=== PATIENT | female | born 1990 | race Caucasian/White ===

== ENCOUNTER 2019-04-01 07:42 | Day surgery (SDC) | payer MEDICAID, SELFPAY ==
--- NOTE | 2019-03-23 13:02 | PCM.HP.BLA ---
History and Physical Date of Admission: 04/01/19 Willa Galvan Physician ANALYTICS LEAD H&P Signed Encounter Date: 03/23/2019 Expand All Collapse All Hide copied text Mal for details Julianna Ta is a 28 year old female who presents Discussion regarding Laparoscopic Bilateral salpingectomy. Pt has two children and current Mirena IUD for menstrual dysfunction and contraception. Pt would like to proceed with permanent sterilization. Pt singed title 19 form in January 2019. Pt understands that this procedure is permanent. Pt denies CP, SOB, Dizziness. ? PAST?MEDICAL?HISTORY PAST MEDICAL HISTORY Diagnosis Date ? Asthma, exercise induced ? ? Broken clavicle ? ? Drug use ? ? Seasonal allergies ? ? PAST?SURGICAL?HISTORY PAST SURGICAL HISTORY Procedure Laterality Date ? REMOVAL OF TONSILS,<12 Y/O ? ? ? Tonsillectomy ? FAMILY?HISTORY FAMILY HISTORY Problem Relation Age of Onset ? Breast Cancer Mother ? ? x2 ? Arthritis Mother ? ? other (Fibromyalgia) Mother ? ? Asthma Father ? ? Breast Cancer Maternal Grandmother ? ? SOCIAL?HISTORY Social History Socioeconomic History Marital status: Single Spouse name: Not on file Number of children: 1 Years of education: Not on file Highest education level: Not on file Social Needs Financial resource strain: Not on file Food insecurity - worry: Not on file Food insecurity - inability: Not on file Transportation needs - medical: Not on file Transportation needs - non-medical: Not on file Occupational History Occupation: server software engineer Employer: [employer] Tobacco Use Smoking status: Never Smoker Smokeless tobacco: Never Used Substance and Sexual Activity Alcohol use: No Drug use: No Sexual activity: Yes Partners: Male control/protection: IUD Other Topics Concerns: Not on file Social History Narrative Not on file ? CURRENT?MEDICATIONS ? Current Outpatient Medications: levonorgestrel (MIRENA) 20 mcg/24 hr (5 years) IUD Inserted in office ibuprofen (MOTRIN) 600 mg tablet Take 1 tablet by mouth every 6 hours as needed. FOR PAIN. ? No current facility-administered medications for this visit. Allergies As of Date: 03/23/2019 (No Known Allergies) Fully Assessed 03/23/2019 ? ? REVIEW OF SYSTEMS Abdomen: no pain Bladder: no dysuria.. Expanded ROS: GENERAL: Negative for fever Allergies and current medication updated:Yes ? EXAM: BP 110/68 Ht 5' 6 (1.68m) Wt 216 lb (98.0kg) BMI 34.88 kg/(m^2). ? GENERAL: pleasant, female in no apparent distress HEENT: Normocephalic, atraumatic, mucus membranes moist and no lesions NECK: Supple, full range of motion, DERMATOLOGY: Normal, without lesions, non-icteric and non-hirsute CARDIAC: regular rate and rhythm CHEST: Clear to auscultation Normal inspiratory effort NEURO: alert and oriented x3,exam grossly non-focal EXTREMITIES: normal ? ASSESSMENT AND PLAN: Encounter Diagnosis ? ? ICD-10-CM ? 1. Request for sterilization Z30.2 ? ? 2. Pt has been counseled on risks/benefits and alternatives of surgery including but not limited to anesthesia, bleeding, infection, injury to pelvic structures including bowel, bladder, ureters and vessels. Pt wishes to proceed with surgery at this time. 3. Title 19 previously signed- risk of regret reviewed. LARCs reviewed. 4. Motrin given for post op pain 5. Reviewed if IUD incidentally gets removed with uterine manipulator will get referral for new one to place in office for menstrual dysfunction. 6. Consent signed ? Willa Rothman MD ? ? ?
--- NOTE | 2019-04-01 | FALS_PTH ---
PATIENT: BRADLEY BERG LOC: [facility] – [place] U#:[id number] AGE/SX: 28/F ROOM: RE04/01/[address]: Dr. Willa Rothman, MDDOB: 1990 BED: DIS: 04/01/2019 SPEC #: [id number] RECD: 04/01/19 13:06 STATUS: JASE LIZ #: [id number] LUKE: 04/01/19 00:[address]: Willa Rothman DEPT: SURGICAL PATHOLOGY RECD BY: Royce Aldana ENTERED: 04/01/19 13:06 SP TYPE: FALL TUBES OTHR DR: No Primary Care Phys Tissues: Fallopian tube Procedures: Surgery Specimen Level II HEADER OPERATION: Laparoscopic salpingectomy PRE-OP DIAGNOSIS: Sterilization request TISSUE SUBMITTED: Bilateral fallopian tubes MICROSCOPIC DIAGNOSIS Right and left fallopian tubes, bilateral salpingectomies: Complete segments of fallopian tubes with no pathologic change. AM:rg 04/02/19 MICROSCOPIC DESCRIPTION Slides are reviewed. GROSS DESCRIPTION Received is one container labeled with the patient's name and designated bilateral fallopian tubes. The specimen consists of two fallopian tubes with an average length of 6 cm and has an average diameter of 0.7 cm. Both fallopian tubes have normal fimbriated ends. No mass lesions are identified. Cottage Attendant sections are submitted in two cassettes as follows: 1 - one fallopian tube, 2 - the other fallopian tube. / AM:romero 04/01/19 TC:4 CPT: 24948 x2
[2019-04-01 08:10] VITALS: BP 120/80; PULSE 88; RESP 16; TEMP 37.7; O2SAT 98; BMI 35.2
[2019-04-01 08:12] LABS: Hematocrit 39.8 % (37-47); Hemoglobin 13.4 g/dl (12.0-15.0); Mean Corp Hgb Conc 33.7 g/gl (32-36); Mean Corpuscular Hgb 29.6 pg (27.0-32.0); Mean Corpuscular Volume 87.9 fL (81-99); Mean Platelet Vol. 9.5 fl (6.2-12.0); Platelet Count 229 K/mm3 (150-450); RBC Distribution Width CV 12.6 % (11.6-14.6); RBC Distribution Width SD 40.6 fl (35.1-43.9); Red Blood Count 4.53 M/mm3 (4.2-5.4); White Blood Count 8.8 K/mm3 (4.4-11.0)
[2019-04-01 08:13] LABS: Scan Indicated on CBC? Y/N NO
[2019-04-01 08:15] LABS: Internal QC Validated? YES +Cl - CLEAR BKGD; Pregnancy, Urine Negative Negative
[2019-04-01] MEDS: Bupivacaine Mpf 0.5% 30 ML VIAL (09:15)
--- NOTE | 2019-04-01 09:32 | PCM.OPRPT ---
Report of Operation Date of Procedure: 04/01/19 Pre-Operative Diagnosis: sterilization request Post-Operative Diagnosis: same Surgery/Procedure Performed:: Laparoscopic Bilateral salpingectomy Description of Surgical Findings:: normal tubes and ovaries bilaterally - Mirena IUD in place member of congress: student - Tony Mayer MS3 Type of Anesthesia:: General Special Medications: 0.5% Marcaine Specimen's removed: bilateral fallopian tubes Drains: none Estimated Blood Loss (mL): <5 Fluids Replaced: 1000 Description of Procedure: After informed consent was obtained patient was taken to the operating room she was placed in supine position she was given anesthesia. She was then placed in the yellow [facility] stirrups and she was prepped and draped in normal sterile fashion. Bladder was drained prior to the start of procedure approximately 50cc of clear yellow urine was expelled. At this time attention was turned to the vaginal portion where weighted speculum placed at posterior fornix vagina single-tooth tenaculum was used to gently grasp the internal the cervix. acorn manipulator placed, IUD strings visualized. Uterine manipulator was placed without difficulty. Legs then placed in parallel with the abdomen the tenaculum and the weighted speculum were removed. 2 towel clamps were placed on either side of umbilicus. After Marcaine was injected superior to umbilicus a small incision was made and a 5 mm trocar was placed under direct visualization. CO2 gas was used to insufflate the intra-abdominal cavity. Upon inspection no gross abnormalities uterus tubes and ovaries appeared to be normal. At this time then the LLQ and RLQ ports were placed again Marcaine was injected small incision was made a knife and the 5 mm trocars were placed. At this time then tubes were traced back to the fimbriated ends. Ligasure was used to coagulate and ligate along mesosalpinx bilaterally until tubes removed completely. Good hemostasis was appreciated. At this time procedure was deemed complete successful. The gas was desufflated on from the intra-abdominal cavity. The trochars were removed. Skin was closed using 4-0 Monocryl in a subcutaneous fashion. Dermabond glue was placed. Instrument lap and needle counts were correct ?2. The uterine manipulator was removed. Vaginal sweep was performed it was negative. There were no complications anticipated normal postoperative course for this patient. Grafts/Implants Used: none - Complications none - Admit VTE Documentation VTE Present on Admission: Yes VTE Mechan Device Prophylaxis: SCD's VTE Pharm Prophylaxis ordered?: No
--- NOTE | 2019-04-01 09:36 | OP.PCM_ITS ---
Report of Operation Date of Procedure: 04/01/19 Pre-Operative Diagnosis: sterilization request Post-Operative Diagnosis: same Surgery/Procedure Performed:: Laparoscopic Bilateral salpingectomy Description of Surgical Findings:: normal tubes and ovaries bilaterally - Mirena IUD in place grain packer: student - Tony Mayer MS3 Type of Anesthesia:: General Special Medications: 0.5% Marcaine Specimen's removed: bilateral fallopian tubes Drains: none Estimated Blood Loss (mL): <5 Fluids Replaced: 1000 Description of Procedure: After informed consent was obtained patient was taken to the operating room she was placed in supine position she was given anesthesia. She was then placed in the yellow [facility] stirrups and she was prepped and draped in normal sterile fashion. Bladder was drained prior to the start of procedure approximately 50cc of clear yellow urine was expelled. At this time attention was turned to the vaginal portion where weighted speculum placed at posterior fornix vagina single-tooth tenaculum was used to gently grasp the internal the cervix. acorn manipulator placed, IUD strings visualized. Uterine manipulator was placed without difficulty. Legs then placed in parallel with the abdomen the tenaculum and the weighted speculum were removed. 2 towel clamps were placed on either side of umbilicus. After Marcaine was injected superior to umbilicus a small incision was made and a 5 mm trocar was placed under direct visualization. CO2 gas was used to insufflate the intra-abdominal cavity. Upon inspection no gross abnormalities uterus tubes and ovaries appeared to be normal. At this time then the LLQ and RLQ ports were placed again Marcaine was injected small incision was made a knife and the 5 mm trocars were placed. At this time then tubes were traced back to the fimbriated ends. Ligasure was used to coagulate and ligate along mesosalpinx bilaterally until tubes removed completely. Good hemostasis was appreciated. At this time procedure was deemed complete successful. The gas was desufflated on from the intra-abdominal cavity. The trochars were removed. Skin was closed using 4-0 Monocryl in a subcutaneous fashion. Dermabond glue was placed. Instrument lap and needle counts were correct ?2. The uterine manipulator was removed. Vaginal sweep was performed it was negative. There were no complications anticipated normal postoperative course for this patient. Grafts/Implants Used: none - Complications none - Admit VTE Documentation VTE Present on Admission: Yes VTE Mechan Device Prophylaxis: SCD's VTE Pharm Prophylaxis ordered?: No
--- NOTE | 2019-04-01 09:36 | PCM.DC.TUB ---
Discharge Diet: No Restrictions, - - Increase fluid intake for 48 hours. Discharge Activity: Return to Normal Activity, May Drive - when you are no longer taking narcotic pain medications., May Shower, May Take a Tub Bath - in 7 days., - - Ambulate often the next week after surgery. May shower in (days): 1 May resume sexual activity in: 2 weeks Lifting Restrictions: 20 Additional Activity Instructions:: Nothing in the vagina for the next 14 days Call your doctor if your incision/area has: Continuous Slow Oozing, Sudden Increased Bleeding, Increased Pain/ Swelling, Increased Redness, Foul Smelling Discharge, Swelling at the incision site Call your doctor if you observe: Fever of 101 or Higher Cleanse incision/area with: Soap & Water, - - you have skin glue- do not pick off. ok to let soap and water run over incision and dab dry. Allergies/Adverse Reactions: Allergies No Known Allergies Allergy (Verified 03/24/19 14:15) Medications to take at Discharge NK 03/24/19 Orders to be completed after discharge: ,Urine Time Frame: 04/01/19, Location: Laboratory Primary Care Physician: Care Physician,No Primary [Primary Care Provider] - Test Results: Test results from this visit will be discussed in further detail at your follow-up appointment, if applicable. Please Follow Up With: Willa Rothman MD When: as scheduled
--- NOTE | 2019-04-01 09:39 | DCINST_ITS ---
Discharge Diet: No Restrictions, - - Increase fluid intake for 48 hours. Discharge Activity: Return to Normal Activity, May Drive - when you are no longer taking narcotic pain medications., May Shower, May Take a Tub Bath - in 7 days., - - Ambulate often the next week after surgery. May shower in (days): 1 May resume sexual activity in: 2 weeks Lifting Restrictions: 20 Additional Activity Instructions:: Nothing in the vagina for the next 14 days Call your doctor if your incision/area has: Continuous Slow Oozing, Sudden Increased Bleeding, Increased Pain/ Swelling, Increased Redness, Foul Smelling Discharge, Swelling at the incision site Call your doctor if you observe: Fever of 101 or Higher Cleanse incision/area with: Soap & Water, - - you have skin glue- do not pick off. ok to let soap and water run over incision and dab dry. Allergies/Adverse Reactions: Allergies No Known Allergies Allergy (Verified 03/24/19 14:15) Medications to take at Discharge NK 03/24/19 Orders to be completed after discharge: ,Urine Time Frame: 04/01/19, Location: Laboratory Primary Care Physician: Care Physician,No Primary [Primary Care Provider] - Test Results: Test results from this visit will be discussed in further detail at your follow- up appointment, if applicable. Please Follow Up With: Willa Rothman MD When: as scheduled
[2019-04-01 09:45] VITALS: BP 120/80; BP 98/71; PULSE 75; RESP 16; TEMP 36.5; O2SAT 98
[2019-04-01 09:59] VITALS: BP 102/67; BP 120/80; PULSE 74; RESP 18; TEMP 36.3; O2SAT 95
[2019-04-01 10:35] VITALS: BP 112/70; BP 120/80; PULSE 77; RESP 16; TEMP 36.6; O2SAT 97
== END 2019-04-01 10:37 | disposition home or self-care (01) ==
LOC: SDC 07:44 → AC 07:46
PROVIDERS: Referring Provider Obstetrics & Gynecology; Visit Provider Obstetrics & Gynecology
PROC: (CPT 58661; principal; 2019-04-01 08:40)
DX: Z30.2 Encounter for sterilization (principal); J45.990 Exercise induced bronchospasm; Z97.5 Presence of (intrauterine) contraceptive device
CPT/HCPCS: 58661; 81025; 85027; 88302; J7120; J2405

== ENCOUNTER 2019-05-04 21:01 | Emergency (ER) | payer MEDICAID, SELFPAY ==
[2019-05-04 21:02] VITALS: BP 122/71; PULSE 91; RESP 20; TEMP 36.8; O2SAT 96; BMI 35.2
--- NOTE | 2019-05-04 21:15 | ED.VIS.GEN ---
History of Present Illness Chief Complaint: Abd Pain Informant: Patient Onset: Today Narrative: Patient presents with sudden intermittent right lower quadrant abdominal pain 1 hour prior to arrival. States would come in bouts and sharp in nature. This morning had some nausea symptoms. Denies any urinary symptoms. No fevers. Normal stools. No previous similar symptoms in the past. History of Mirena placement along with recent bilateral salpingectomy a month ago for sterilization. No history of kidney stones. Reports symptoms currently resolved. Prior similar symptoms: No Past Medical History - Allergies and Home Meds Allergies/Adverse Reactions: Allergies No Known Allergies Allergy (Verified 03/24/19 14:15) Primary Care Physician: Care Physician,No Primary [Primary Care Provider] - Surgical History: no surgical history Smoking Status: Never smoker - Family History Paternal Family History: Reports: No pertinent history Maternal Family History: Reports: - - Breast cancer Review of Systems General: Denies: Chills, Fever, Sweats Eyes: Denies: Visual changes - bilaterally, Diplopia ENT: Denies: Rhinorrhea, Sore throat Cardiovascular: Denies: Chest pain, Palpitations Respiratory: Denies: Dyspnea, Cough, Dyspnea on exertion Gastrointestinal: Denies: Abdominal pain, Nausea, Vomiting, Diarrhea, Melena, Hematochezia Genitourinary: Denies: Dysuria, Hematuria, Frequency Musculoskeletal: Denies: Back pain, Extremity Pain Skin: Denies: Rash, Wounds Neurological: Denies: Headache, Weakness, Numbness Physical Exam Vital Signs/Narrative: Vital Signs Temp Pulse Resp BP Pulse Ox 05/04/19 21:02 98.3 F 91 20 H 122/71 H 96 Inital Vital Signs reviewed: Yes General: Well nourished, Well developed, No Acute Distress Head: Normocephalic, Atraumatic Eyes: Perrl, EOMI ENT: Moist mucous membranes, No rhinorrhea Neck: Supple, Nontender Cardiovascular: Regular rate, Regular rhythm, No murmurs Respiratory: No distress, CTA bilaterally, Chest nontender Abdomen: Soft, Nontender, Nondistended, Normal bowel sounds, - - Negative McBurney's tenderness.. Negative for: Headley's sign Back: Nontender, Normal Inspection Extremities: Nontender, No edema Skin: Normal color, No rash Neurological: Alert, Oriented x3, Cranial nerves II-XII grossly intact, Normal Strength, Normal Sensation Psychological: Normal affect, Normal Mood Diagnostic/Tx/Re-eval Abnormal Lab Results 05/04/19 05/04/19 21:22 21:22 Urine Color Yellow Urine Clarity Sl. Cloudy Urine pH 6.0 Ur Specific [place] 1.020 Urine Protein Negative Urine Glucose (UA) Normal Urine Ketones Negative Urine Occult Blood 25 H Urine Nitrite Negative Urine Bilirubin Negative Urine Urobilinogen Normal Ur Leukocyte Esterase Negative Urine RBC 0-5 SEEN Urine WBC 0 SEEN Ur Squamous Epith Cells 0-5 SEEN Urine Bacteria 0 SEEN Urine Mucus 0 SEEN Urine Test Negative - Medical Decision Making Patient currently asymptomatic. Her history concern for possible renal stones with colic symptoms. I did check a urine. Did note hematuria. No infection. hCG negative. Reevaluation still remains asymptomatic. Discussed with patient colic symptoms, discussed to return to take Motrin, however symptoms uncontrolled or worsens to return for reevaluation. No clinical signs of appendicitis with her right lower quadrant pain, however signs and symptoms also discussed to be reevaluated. She is given follow-up with urology for hematuria and her colic symptoms. All questions were answered. ED Disposition - Plan for ED Patient: Disposition: Home or Assisted Living Diagnosis: Hematuria Instructions: Hematuria Referrals: Care Physician,No Primary [Primary Care Provider] - Tabatha Santiago MD [STAFF PHYSICIAN] - 5-7 Days
[2019-05-04 21:32] LABS: Bacteria 0 SEEN /hpf (None Seen); Mucous, Urine 0 SEEN /hpf (<or=2+); White Blood Cells 0 SEEN /hpf (0-5)
[2019-05-04 21:36] LABS: Color, Urine Yellow (Yellow); Glucose, Dipstick Normal (Normal); Ketone-Dipstick Negative (Negative); Leukocyte Esterase-Dipstick Negative /ul (Negative); Nitrite-Dipstick Negative (Negative); Occult Blood-Urine 25 /ul (Negative); Protein-Dipstick Negative (Negative); Urine Bilirubin Dipstick Negative (Negative); Urine Clarity Sl. Cloudy (Clear); Urine Urobilinogen Normal (Normal)
[2019-05-04 21:42] LABS: Internal QC Validated? YES +Cl - CLEAR BKGD; Red Blood Cells-Urine 0-5 SEEN /hpf (0-5); Squamous Epithelial Cells - UA 0-5 SEEN /hpf (5-10)
[2019-05-04 21:43] LABS: Pregnancy, Urine Negative Negative
[2019-05-04 22:17] VITALS: BP 113/72; PULSE 79; RESP 16; O2SAT 94
== END 2019-05-04 22:17 | disposition home or self-care (01) ==
PROVIDERS: Emergency Provider Emergency Medicine
DX: R31.9 Hematuria, unspecified (principal)
CPT/HCPCS: 81001; 81025; 99282

== ENCOUNTER → 2020-01-31 | Outpatient (CLI) | payer MEDICAID, SELFPAY ==
[2020-01-31 20:01] LABS: M R Staph aureus DNA By PCR Negative (Negative); Staph aureus DNA By PCR NEGATIVE (Negative)
[2020-01-31 20:02] LABS: Probe Check PASS; Specimen Processing Control PASS
== END | disposition home or self-care (01) ==
PROVIDERS: Referring Provider Podiatrist; Visit Provider Podiatrist
DX: L60.0 Ingrowing nail (principal)
CPT/HCPCS: 87070; 87075; 87077; 87186; 87205; 87640

== ENCOUNTER 2022-05-14 09:45 | Outpatient (RCR) | payer SELFPAY | END 2022-05-16 23:59 | LOC: EMPH 09:45 | PROVIDERS: Visit Provider Family Medicine Geriatric Medicine | DX: Z01.84 Encounter for antibody response examination (principal) | CPT/HCPCS: 87426; 87811 ==

== ENCOUNTER → 2022-06-26 | Outpatient (CLI) | payer BC, SELFPAY ==
[2022-06-26 10:00] LABS: Absolute Lymphocyte Count 1.68 X10^3/uL (0.83-4.51); Absolute Neutrophil Count 5.7 X10^3/uL (2.0-7.7); Basophil# 0.03 X10^3/uL; Basophil% 0.4 % (0-1); Eosinophil# 0.22 X10^3/uL; Eosinophils% 2.7 % (0-5); Hematocrit 37.7 % (37-47); Hemoglobin 12.5 g/dL (12.0-15.0); Lymphocyte # 1.68 X10^3/ul (0.83-4.51); Lymphocyte % 20.5 % (19-41); Mean Corp Hgb Conc 33.2 g/dL (32-36); Mean Corpuscular Volume 90.6 fL (81-99); Mean Platelet Vol. 9.9 fl (6.2-12.0); Monocyte# 0.56 X10^3/uL; Monocyte% 6.8 % (0-10); NRBC Flagged by Analyzer 0 % (0-5); Neutrophil # 5.65 X10^3/uL (2.7-7.7); Neutrophil % 69.1 % (47-70); Platelet Count 247 K/mm3 (150-450); RBC Distribution Width CV 12.3 % (11.6-14.6); RBC Distribution Width SD 40.8 fl (35.1-43.9); Red Blood Count 4.16 M/mm3 (4.2-5.4); White Blood Count 8.2 K/mm3 (4.4-11.0)
[2022-06-26 10:20] LABS: ALB/GLOB Ratio 1.1 RATIO (0.9-2.4); AST(SGOT) 12 U/L (15-37); Alanine Aminotransfer ALT/SGPT 24 U/L (13-56); Alkaline Phosphatase 48 U/L (45-117); Anion Gap 4 (5-15); BUN 13 mg/dL (7-18); BUN/Creat Ratio 18.5 RATIO (10-20); Calcium,Total 8.8 mg/dL (8.5-10.1); Chloride 106 mmol/L (98-107); EST Glomerular Filtration Rate 102 mL/min (>60); Est Glom Filt Rate - Afr Amer 123 mL/min (>60); Ferritin 158 ng/mL (8-252); Globulin 3.7 g/dL (2.2-4.2); Glucose 99 mg/dL (74-106); Potassium 3.9 mmol/L (3.5-5.1); Protein, Total 7.7 g/dL (6.4-8.2); Sodium Level 138 mmol/L (136-145); T4 Total, Thyroxin 9.5 ug/dL (4.8-13.9); Thyroid Stim Hormone (TSH) 2.05 uIU/mL (0.358-3.74)
[2022-06-26 16:29] LABS: Prealbumin 25.7 mg/dL (20.0-40.0)
[2022-06-27 08:43] LABS: Thyroid Peroxidase AB 9 IU/mL (0-34)
== END | disposition home or self-care (01) ==
PROVIDERS: Referring Provider Dermatology; Visit Provider Dermatology
DX: L70.0 Acne vulgaris (principal); L65.9 Nonscarring hair loss, unspecified
CPT/HCPCS: 36415; 80053; 82728; 84134; 84436; 84443; 85025; 86038; 86376

== ENCOUNTER → 2022-09-09 | Outpatient (CLI) | payer BC, SELFPAY ==
[2022-09-09 11:06] LABS: EXAGEN MAILED SPECIMEN
[2022-09-09 12:30] LABS: Absolute Lymphocyte Count 1.95 X10^3/uL (0.83-4.51); Absolute Neutrophil Count 7.5 X10^3/uL (2.0-7.7); Basophil# 0.03 X10^3/uL; Basophil% 0.3 % (0-1); Eosinophil# 0.13 X10^3/uL; Eosinophils% 1.3 % (0-5); Hematocrit 36.7 % (37-47); Hemoglobin 12.1 g/dL (12.0-15.0); Lymphocyte # 1.95 X10^3/ul (0.83-4.51); Lymphocyte % 18.8 % (19-41); Mean Corpuscular Volume 90.8 fL (81-99); Mean Platelet Vol. 10.2 fl (6.2-12.0); Monocyte# 0.74 X10^3/uL; Monocyte% 7.1 % (0-10); NRBC Flagged by Analyzer 0 % (0-5); Neutrophil # 7.46 X10^3/uL (2.7-7.7); Neutrophil % 71.9 % (47-70); Platelet Count 242 K/mm3 (150-450); RBC Distribution Width CV 12.7 % (11.6-14.6); RBC Distribution Width SD 41.5 fl (35.1-43.9); Red Blood Count 4.04 M/mm3 (4.2-5.4); White Blood Count 10.4 K/mm3 (4.4-11.0)
[2022-09-09 12:34] LABS: International Normalized Ratio 1.2; Prothrombin Time (Protime)PT. 14.8 SECONDS (11.7-14.9)
[2022-09-09 12:35] LABS: Color, Urine Straw (Yellow); Glucose, Dipstick Normal (Normal); Ketone-Dipstick Negative (Negative); Leukocyte Esterase-Dipstick 25 /ul (Negative); Nitrite-Dipstick Negative (Negative); Occult Blood-Urine Negative /ul (Negative); Partial Thromboplast Time 31.8 Seconds (24.1-36.2); Protein-Dipstick Negative (Negative); Urine Bilirubin Dipstick Negative (Negative); Urine Clarity Clear (Clear); Urine Urobilinogen Normal (Normal)
[2022-09-09 13:12] LABS: Hepatitis B Surface Antibody Reactive; Hepatitis B Surface Antigen Non-Reactive (Nonreactive); Hepatitis C Antibody Non-Reactive (Nonreactive)
[2022-09-09 13:17] LABS: Erythrocyte Sedimentation Rate 14 mm/hr (0-30)
[2022-09-09 13:33] LABS: Protein, Urine (Random) 13.7 mg/dL (<11.9); Protein:Creat Ratio 150 mg/g CRE (0-200)
[2022-09-09 13:41] LABS: ALB/GLOB Ratio 1.1 RATIO (0.9-2.4); AST(SGOT) 12 U/L (15-37); Alanine Aminotransfer ALT/SGPT 17 U/L (13-56); Albumin, Serum 3.7 g/dL (3.2-5.0); Alkaline Phosphatase 44 U/L (45-117); Anion Gap 8 (5-15); BUN 9 mg/dL (7-18); BUN/Creat Ratio 15.1 RATIO (10-20); CRP 3.77 mg/L (0.0-3.0); Calcium,Total 9.1 mg/dL (8.5-10.1); Chloride 108 mmol/L (98-107); EST Glomerular Filtration Rate 123 mL/min (>60); Est Glom Filt Rate - Afr Amer 149 mL/min (>60); Globulin 3.4 g/dL (2.2-4.2); Glucose 95 mg/dL (74-106); Potassium 3.9 mmol/L (3.5-5.1); Protein, Total 7.1 g/dL (6.4-8.2); Sodium Level 139 mmol/L (136-145)
[2022-09-11 16:09] LABS: Dilute Prothrombin Time (dPT) 44.6 sec (0.0-47.6); Dilute Russell Viper Venom 46.3 sec (0.0-47.0); Hexagonal Phase Phospholipid 5 sec (0-11); PTT-LA 39.6 sec (0.0-51.9); Thrombin Time 16.8 sec (0.0-23.0); dPT Confirm Ratio 1.04 Ratio (0.00-1.34)
[2022-09-12 11:13] LABS: Thrombin Time 15.6 sec (0.0-23.0)
[2022-09-12 17:27] LABS: Interpretation Comment: (.)
== END | disposition home or self-care (01) ==
PROVIDERS: Referring Provider Internal Medicine Rheumatology; Visit Provider Internal Medicine Rheumatology
DX: M06.4 Inflammatory polyarthropathy (principal); R76.8 Other specified abnormal immunological findings in serum; L64.9 Androgenic alopecia, unspecified; L70.9 Acne, unspecified
CPT/HCPCS: 36415; 80053; 81002; 82570; 84156; 85025; 85598; 85610; 85652; 85670; 85730; 86140; 86706; 86803; 87340